=== PATIENT | female | born 1985 | race Caucasian/White ===

== ENCOUNTER 2018-05-31 08:24 | Emergency (ER) | payer SELFPAY ==
[~2018-05-31] VITALS: Ht 162.6 cm; Wt 59.0 kg
--- NOTE | 2018-05-31 08:52 | PHYS DOC ---
Past History Past Medical History: No Pertinent History Past Surgical History: No Surgical History Alcohol Use: None Adult General Chief Complaint Chief Complaint: UPPER EXTREMITY PAIN HPI HPI 33-year-old otherwise healthy female presents with some numbness in her fingers. She states this is primarily a problem when she wakes up in the morning. She also notes that she has a small lump on her left bicep. She states at times this is painful. She denies any redness around the bump. She states there is no weakness in her hand just feels numb Review of Systems Review of Systems Constitutional: Denies fever or chills [] Eyes: Denies change in visual acuity, redness, or eye pain [] HENT: Denies nasal congestion or sore throat [] Respiratory: Denies cough or shortness of breath [] Cardiovascular: No additional information not addressed in HPI [] GI: Denies abdominal pain, nausea, vomiting, bloody stools or diarrhea [] : Denies dysuria or hematuria [] Musculoskeletal: Per history of present illness[] Integument: Denies rash or skin lesions [] Neurologic: Tingling in the medial 3 fingers[] Endocrine: Denies polyuria or polydipsia [] All other systems were reviewed and found to be within normal limits, except as documented in this note. Allergies Allergies Allergies Coded Allergies Type Severity Reaction Last Updated Verified No Known Drug Allergies 05/31/18 No Physical Exam Physical Exam Constitutional: Well developed, well nourished, no acute distress, non-toxic appearance. [] HENT: Normocephalic, atraumatic, bilateral external ears normal, oropharynx moist, no oral exudates, nose normal. [] Eyes: PERRLA, EOMI, conjunctiva normal, no discharge. [] Neck: Normal range of motion, no tenderness, supple, no stridor. [] Cardiovascular:Heart rate regular rhythm, no murmur [] Lungs & Thorax: Bilateral breath sounds clear to auscultation [] Abdomen: Bowel sounds normal, soft, no tenderness, no masses, no pulsatile masses. [] Skin: Warm, dry, no erythema, no rash. [] Back: No tenderness, no CVA tenderness. [] Extremities: She has a very tiny firm knot in her left bicep that appears smaller than a pea[] Neurologic: Alert and oriented X 3, normal motor function, normal sensory function, no focal deficits noted. [] Psychologic: Affect normal, judgement normal, mood normal. [] Current Patient Data Vital Signs Vital Signs Date Time Temp Pulse Resp B/P (MAP) Pulse Ox O2 Delivery O2 Flow Rate FiO2 05/31/18 08:25 97.7 73 18 100 Room Air EKG EKG [] Radiology/Procedures Radiology/Procedures [] Course & Med Decision Making Course & Med Decision Making Pertinent Labs and Imaging studies reviewed. (See chart for details) [ED course: Evaluation reveals a 33-year-old female in no distress. Her exam is most consistent with carpal tunnel syndrome. I instructed the patient to try using a Velcro wrist splint. She seemed to understand. I did let her know that I 'm not entirely sure what the little knot was in her left bicep but could be either lymph node or superficial thrombophlebitis. Either way, I suggested she try warm compresses keep an eye on it and return if the lump gets any larger. She understood.] Dragon Disclaimer Dragon Disclaimer This electronic medical record was generated, in whole or in part, using a voice recognition dictation system. Departure Departure: Impression: Primary Impression: Carpal tunnel syndrome of left wrist Disposition: 01 HOME, SELF-CARE Condition: STABLE Referrals: NAZ DIALLO MD (PCP) Patient Instructions: Carpal Tunnel Syndrome, Carpal Tunnel Syndrome-SportsMed Additional Instructions: As we discussed, I suggest you wear a Velcro wrist splint to sleep over the next several days to see if this doesn't help with the numbness. Over-the- counter Motrin is best to help with the discomfort. Return emergency department with any new or concerning symptoms JED TURCIOS DO May 31, 2018 08:52
[2018-05-31 08:58] VITALS: BP 99/63
== END 2018-05-31 09:00 | disposition home or self-care (01) ==
LOC: ER 08:24
DX: G56.02 Carpal tunnel syndrome, left upper limb (principal)
CPT/HCPCS: 29125; 99283